=== PATIENT | male | born 1970 | race Caucasian/White ===

== ENCOUNTER 2020-12-26 08:08 | Emergency (ER) | payer OTHER ==
[~2020-12-26] VITALS: Ht 190.5 cm; Wt 118.2 kg
--- NOTE | 2020-12-26 08:30 | NUR ---
pt presents to ED with c/o dizziness and shortness of breath, onset this am. pt reports dizziness now resolved, sob improved. pt denies chest pain, denies chest pressure. pt is a&ox4, speech clear, neuro intact. 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
[2020-12-26] MEDS ORDERED: NITROGLYCERIN SINGLE TAB 0.4 MG SL PRN (09:00)
--- NOTE | 2020-12-26 09:00 | NUR ---
BP normalized to 130/89, MÓNICA Antoine notified. RN instructed to hold nitro. pt states he has already taken aspirin today, unknown dose.
[2020-12-26 09:13] LABS: BASOPHILS % (AUTO) 1 % (0-1); EOSINOPHILS % (AUTO) 1 % (1-7); LYMPHOCYTES % (AUTO) 22 % (22-44); MEAN CORPUSCULAR HGB CONC 34.2 g/dL (33.2-36.2); MEAN PLATELET VOLUME 7.5 fL (7.4-10.4); MONOCYTES % (AUTO) 6 % (2-9); NEUTROPHILS % (AUTO) 70 % (42-75); PLATELET COUNT 384 x10^3/uL (130-400); RED BLOOD COUNT 5.19 x10^6/uL (4.38-5.82); RED CELL DISTRIBUTION WIDTH 13.4 % (9.4-14.8)
[2020-12-26 09:21] LABS: ALBUMIN 4.2 g/dL (3.4-5.0); ANION GAP 10 mmol/L (5-15); CALCIUM 9.4 mg/dL (8.5-10.1); CHLORIDE 105 mmol/L (98-107)
[2020-12-26 09:24] VITALS: BP 138/89
[2020-12-26 09:27] LABS: ALANINE AMINOTRANSFERASE 45 U/L (12-78); ALKALINE PHOSPHATASE 98 U/L (45-117); BILIRUBIN,TOTAL 0.6 mg/dL (0.2-1.0); CREATININE 1.01 mg/dL (0.7-1.3); TOTAL PROTEIN 8.4 g/dL (6.4-8.2); TROPONIN I < 0.015 ng/mL (0.000-0.045)
[2020-12-26] MEDS ORDERED: SODIUM CHLORIDE 0.9% 1,000ML IVBOLUS ONE (09:30)
[2020-12-26] MEDS ORDERED: SODIUM CHLORIDE FLUSH 10ML SYR IVF ONE (09:30)
--- NOTE | 2020-12-26 09:48 | NUR ---
PIV placed, NS infusing. pt continues to deny chest pain/pressure. pt is a&ox4, resps even and unlabored, nsr on monitoring and evaluation advisor with no ectopy. pt able to speak in full sentences without any difficulty. all results back, chart up for recheck. awaiting MD and dispo.
--- NOTE | 2020-12-26 10:30 | NUR ---
IVF complete. 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 pt has no complaint. awaiting dc orders at this time.
--- NOTE | 2020-12-26 11:32 | NUR ---
pt given dc instructions, verbal and written. piv dc'd with tip intact. pt a&o, resps even and unlabored, nadn. pt ambulatory to dc desk with steady gait, accompanied by . no complaint at dc.
== END 2020-12-26 11:31 | disposition home or self-care (01) ==
LOC: ED 11:00
DX: R06.00 Dyspnea, unspecified (principal); R42 Dizziness and giddiness
CPT/HCPCS: 36415; 71045; 80053; 83690; 84484; 85025; 85379; 93005; 96360; 99285; J7030